=== PATIENT | female | born 2005 | race Hispanic/Latino ===

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

== ENCOUNTER 2024-12-14 12:37 | Outpatient (CLI) | payer BC ==
[2024-12-14] MEDS ORDERED: Barium Sulfate 96% 176 GM BOT (xray ONLY) ONE (12:55)
[2024-12-14] MEDS ORDERED: E-Z-HD 98% W/W 340GM BOT (x-ray ONLY) ONE (12:55)
== END 2024-12-14 12:38 | disposition home or self-care (01) ==
LOC: RAD 12:37
PROVIDERS: ATTEND Nurse Practitioner Family
DX: R13.19 Other dysphagia (principal)
CPT/HCPCS: 74220